=== PATIENT | male | born 1975 | race Hispanic/Latino ===

== ENCOUNTER 2019-02-01 23:01 | Inpatient (IN) | payer OTHER ==
--- NOTE | 2019-02-01 23:06 | Emergency Department Report ---
History of Present Illness - General Stated Complaint: SUIDIDE ATTEMPT/MH EVAL Time Seen by Provider: 02/01/19 23:02 Source: patient, EMS Mode of arrival: Stretcher Limitations: No Limitations - History of Present Illness Initial Comments: Patient is a 43-year-old male that presents emergency room with complaints of suicide attempt by rubbing alcohol ingestion. Patient states he drank 1 bottle rubbing alcohol. Patient states she was trying to kill himself as having family issues. Patient states he's been having suicidal thoughts for the last few days and just decided to end it all. Patient denies homicidal ideation. Patient denies hallucinations. Patient denies anxiety. Patient complains of depression. MD Complaint: intentional overdose -: Sudden Intent: suicide attempt How Overdose Was Discovered: called family/friend Context: Intentional Overdose: relationship problems Associated Symptoms: depression Treatments Prior to Arrival: none - Related Data Allergies Allergy/AdvReac Type Severity Reaction Status Date / Time No Known Allergies Allergy Unverified 02/02/19 00:11 ED Review of Systems ROS: Stated complaint: SUIDIDE ATTEMPT/MH EVAL Other details as noted in HPI Constitutional: denies: chills, fever Eyes: denies: eye pain, eye discharge, vision change ENT: denies: ear pain, throat pain Respiratory: denies: cough, shortness of breath, wheezing Cardiovascular: denies: chest pain, palpitations Endocrine: no symptoms reported Gastrointestinal: denies: abdominal pain, nausea, diarrhea Genitourinary: denies: urgency, dysuria Musculoskeletal: denies: back pain, joint swelling, arthralgia Skin: denies: rash, lesions Neurological: denies: headache, weakness, paresthesias Psychiatric: depression, suicidal thoughts. denies: anxiety Hematological/Lymphatic: denies: easy bleeding, easy bruising ED Past Medical Hx - Past Medical History Previous Medical History?: No - Surgical History Past Surgical History?: No - Family History Family history: no significant - Social History Smoking Status: Current Every Day Smoker Substance Use Type: None ED Physical Exam - General Limitations: No Limitations General appearance: alert, in no apparent distress - Head Head exam: Present: atraumatic, normocephalic - Eye Eye exam: Present: normal appearance - ENT ENT exam: Present: mucous membranes moist - Neck Neck exam: Present: normal inspection - Respiratory Respiratory exam: Present: normal lung sounds bilaterally. Absent: respiratory distress - Cardiovascular Cardiovascular Exam: Present: regular rate, normal rhythm. Absent: systolic murmur, diastolic murmur, rubs, gallop - GI/Abdominal GI/Abdominal exam: Present: soft, normal bowel sounds. Absent: distended, tenderness, guarding - Rectal Rectal exam: Present: deferred - Extremities Exam Extremities exam: Present: normal inspection - Back Exam Back exam: Present: normal inspection - Neurological Exam Neurological exam: Present: alert, oriented X3 - Psychiatric Psychiatric exam: Present: depressed, suicidal ideation - Skin Skin exam: Present: warm, dry, intact, normal color. Absent: rash ED Course Vital Signs 02/01/19 02/01/19 23:15 23:45 Pulse Rate 98 H 85 Respiratory 18 18 Rate Blood Pressure 111/70 116/79 [Left] O2 Sat by Pulse 96 95 Oximetry - Reevaluation(s) Reevaluation #1: Initial evaluation done. Patient placed on 1013. Poison control will be called by nurse. see poison control recs below. 02/01/19 23:06 VINCENT DESAI Male : 1975 MedRec# [id number] 02/02/19 01:42 - Nurse Note by SONDRA MISHRA Acct Num: [id number] : 1975 Patient Age: 43 Poison control (p.c) called upon arrival, advise to Treat Symptomatically. Per p.c;, pt can present with [employer] SPECIALIST depression, GI Sx, GI bleed, Mild increase in BG, tachycardia, resp. distress, ketonemia without metabolic acidosis. 1/2 for rubbing alcohol is 2-3 days, per p.c, observe for at least 24 hrs. Check urine for ketones, and serum acetone. [facility] Isopropyl Alcohol 70% [id number] fl oz If pt presents with acidosis: measure serum osomolality, ethonal, acetaminophen and ASA all from same sample. Initialized on 02/02/19 01:42 - END OF NOTE Reevaluation #2: Discussed all results with patient. Per poison control recommendations, the patient will be admitted to the hospitalist service for observation. 02/02/19 00:30 - Consultations Consultation #1: Hospitalist consultation for admission. Hospitalist to admit patient and assume care of patient. 02/02/19 00:35 ED Medical Decision Making - Lab Data Result diagrams: 02/01/19 23:10 02/01/19 23:10 - EKG Data -: EKG Interpreted by Me EKG shows normal: sinus rhythm, axis, intervals, QRS complexes, ST-T waves Rate: normal - Medical Decision Making Patient is a 43-year-old male presents emergency room with complaints of overdose by rubbing alcohol. Patient's overdose was a suicide attempt. Patient placed on 1013. Patient's labs done and unremarkable. Poison control contacted. Patient admitted to the hospitalist for observation and further evaluation and treatment. - Differential Diagnosis overdose. Suicide attempt. Critical Care Time: Yes Critical care attestation.: If time is entered above; I have spent that time in minutes in the direct care of this critically ill patient, excluding procedure time. Critical Care Time: 35 minutes ED Disposition Clinical Impression: Overdose Qualifiers: Encounter type: initial encounter Injury intent: intentional self-harm Qualified Code(s): T50.902A - Poisoning by unspecified drugs, medicaments and biological substances, intentional self-harm, initial encounter Suicidal behavior Qualifiers: Attempted self-injury: with attempted self-injury Qualified Code(s): T14.91XA - Suicide attempt, initial encounter Ingestion of caustic substance Qualifiers: Encounter type: initial encounter Injury intent: intentional self-harm Qualified Code(s): T54.92XA - Toxic effect of unspecified corrosive substance, intentional self-harm, initial encounter Disposition: DC-09 OP ADMIT IP TO THIS HOSP Is pt being admited?: Yes Does the pt Need Aspirin: No Condition: Critical Time of Disposition: 00:33
[2019-02-01 23:30] LABS: Basophils # (Auto) 0.1 K/mm3 (0.0-0.1); Basophils % (Auto) 0.9 % (0.0-1.8); Eosinophils % (Auto) 0.1 % (0.0-4.3); Hematocrit 47.5 % (35.5-45.6); Hemoglobin 16.3 gm/dl (11.8-15.2); Lymphocytes # (Auto) 2.9 K/mm3 (1.2-5.4); Lymphocytes % (Auto) 24.9 % (13.4-35.0); Mean Corpuscular HGB Conc 34 % (32-34); Mean Corpuscular Volume 102 fl (84-94); Monocytes # (Auto) 0.8 K/mm3 (0.0-0.8); Monocytes % (Auto) 7.1 % (0.0-7.3); Platelet Count 336 K/mm3 (140-440); Red Blood Count 4.64 M/mm3 (3.65-5.03); Red Cell Distribution Width 13.9 % (13.2-15.2)
[2019-02-01 23:53] LABS: Alanine Aminotransferase 125 units/L (7-56); Albumin 4.2 g/dL (3.9-5); BUN/Creatinine Ratio 10; Blood Urea Nitrogen 12 mg/dL (9-20); Calcium 8.8 mg/dL (8.4-10.2); Hemolysis Index 6
[2019-02-01] MEDS ORDERED: NACL 0.9% 1000 ML 1,000 ML IV ONE (23:55)
[2019-02-01] MEDS ORDERED: ZOFRAN IV ONE (23:55)
[2019-02-01] MEDS ORDERED: ZOFRAN ONE (23:58)
[2019-02-02] MEDS ORDERED: SODIUM CHLORIDE FLUSH SYRINGE 10 ML IV PRN (02:15)
[2019-02-02] MEDS ORDERED: ZOFRAN IV PRN (02:15)
[2019-02-02] MEDS ORDERED: TYLENOL PO PRN (02:15)
[2019-02-02] MEDS ORDERED: D50W (25GM) Syringe IV PRN (02:23)
[2019-02-02] MEDS ORDERED: K-DUR PO ONE ×2 (02:40→04:51)
--- NOTE | 2019-02-02 02:40 | History and Physical Report ---
History of Present Illness Date of examination: 02/02/19 Chief complaint: "I drank rubbing alcohol" History of present illness: Patient is a 43-year-old male with history of COPD who was brought to the ED via EMS on account of ingestion of rubbing alcohol at about 10.30-11 AM in an attempt to commit suicide. Patient stated that he didn't want to live anymore. He later called a family member and EMS was called. He admitted to generalized abdominal pain, nausea with vomiting times multiple episodes, lightheadedness and syncope. He denied chest pain, palpitation, shortness of breath, fever or chills. No prior history of suicidal attempt. Patient was subsequently arrested by the police because he had an outstanding warrant. Past History Past Medical History: COPD, other (hypoglycemia) Past Surgical History: hernia repair, Other (eye surgery) Social history: smoking (he has 20 years history of cigarette smoking. He currently smokes 1 pack per day. He admits to daily alcohol use. He denies illicit drug use) Family history: other (no known family history of hypertension, diabetes or heart disease) Medications and Allergies Allergies Allergy/AdvReac Type Severity Reaction Status Date / Time No Known Allergies Allergy Unverified 02/02/19 00:11 Active Meds: Active Medications Acetaminophen (Tylenol) 650 mg PO Q4H PRN PRN Reason: Pain MILD(1-3)/Fever >100.5/AGUIRRE Dextrose (D50w (25gm) Syringe) 25 ml IV PRN PRN PRN Reason: Hypoglycemia Enoxaparin Sodium (Lovenox) 40 mg SUB-Q QDAY IVETTE Sodium Chloride (Nacl 0.9% 1000 Ml) 1,000 mls @ 75 mls/hr IV DIRECT IVETTE Ondansetron HCl (Zofran) 4 mg IV Q8H PRN PRN Reason: Nausea And Vomiting Potassium Chloride (K-Dur) 40 meq PO ONCE ONE Stop: 02/02/19 02:41 Sodium Chloride (Sodium Chloride Flush Syringe 10 Ml) 10 ml IV BID IVETTE Sodium Chloride (Sodium Chloride Flush Syringe 10 Ml) 10 ml IV PRN PRN PRN Reason: LINE FLUSH Review of Systems All systems: negative (except as documented in the HPI, 14 point system reviewed were negative) Exam - Constitutional Vitals: Temp Pulse Resp BP Pulse Ox 72 16 103/53 93 02/02/19 01:55 02/02/19 01:55 02/02/19 01:55 02/02/19 01:55 General appearance: Present: no acute distress - EENT Eyes: Present: PERRL, EOM intact ENT: hearing intact, clear oral mucosa - Neck Neck: Present: supple, normal ROM - Respiratory Respiratory effort: normal Respiratory: bilateral: CTA - Cardiovascular Rhythm: regular Heart Sounds: Present: S1 & S2. Absent: rub, click - Extremities Extremities: pulses symmetrical, No edema Peripheral Pulses: within normal limits - Abdominal General gastrointestinal: Present: soft, tender (generalized), non-distended, normal bowel sounds Male genitourinary: Present: deferred - Integumentary Integumentary: Present: clear, warm, dry - Musculoskeletal Musculoskeletal: gait normal, strength equal bilaterally - Psychiatric Psychiatric: cooperative - Neurologic Neurologic: CNII-XII intact, moves all extremities Results - Labs CBC & Chem 7: 02/01/19 23:10 02/01/19 23:10 Labs: Laboratory Last Values WBC 11.7 K/mm3 (4.5-11.0) H 02/01/19 23:10 RBC 4.64 M/mm3 (3.65-5.03) 02/01/19 23:10 Hgb 16.3 gm/dl (11.8-15.2) H 02/01/19 23:10 Hct 47.5 % (35.5-45.6) H 02/01/19 23:10 MCV 102 fl (84-94) H 02/01/19 23:10 MCH 35 pg (28-32) H 02/01/19 23:10 MCHC 34 % (32-34) 02/01/19 23:10 RDW 13.9 % (13.2-15.2) 02/01/19 23:10 Plt Count 336 K/mm3 (140-440) 02/01/19 23:10 Lymph % (Auto) 24.9 % (13.4-35.0) 02/01/19 23:10 [place] % (Auto) 7.1 % (0.0-7.3) 02/01/19 23:10 Eos % (Auto) 0.1 % (0.0-4.3) 02/01/19 23:10 Baso % (Auto) 0.9 % (0.0-1.8) 02/01/19 23:10 Lymph # 2.9 K/mm3 (1.2-5.4) 02/01/19 23:10 [place] # 0.8 K/mm3 (0.0-0.8) 02/01/19 23:10 Eos # 0.0 K/mm3 (0.0-0.4) 02/01/19 23:10 Baso # 0.1 K/mm3 (0.0-0.1) 02/01/19 23:10 Seg Neutrophils % 67.0 % (40.0-70.0) 02/01/19 23:10 Seg Neutrophils # 7.8 K/mm3 (1.8-7.7) H 02/01/19 23:10 VBG pH 7.429 (7.320-7.420) H 02/01/19 23:29 Sodium 142 mmol/L (137-145) 02/01/19 23:10 Potassium 3.4 mmol/L (3.6-5.0) L 02/01/19 23:10 Chloride 100.5 mmol/L (98-107) 02/01/19 23:10 Carbon Dioxide 25 mmol/L (22-30) 02/01/19 23:10 20 mmol/L 02/01/19 23:10 BUN 12 mg/dL (9-20) 02/01/19 23:10 1.2 mg/dL (0.8-1.5) 02/01/19 23:10 Estimated GFR > 60 ml/min 02/01/19 23:10 10 % 02/01/19 23:10 Glucose 130 mg/dL (75-100) H 02/01/19 23:10 Calcium 8.8 mg/dL (8.4-10.2) 02/01/19 23:10 0.50 mg/dL (0.1-1.2) 02/01/19 23:10 AST 92 units/L (5-40) H 02/01/19 23:10 ALT 125 units/L (7-56) H 02/01/19 23:10 60 units/L (35-129) 02/01/19 23:10 7.5 g/dL (6.3-8.2) 02/01/19 23:10 4.2 g/dL (3.9-5) 02/01/19 23:10 1.3 % 02/01/19 23:10 Salicylates < 0.3 mg/dL (2.8-20.0) L 02/01/19 23:10 Acetaminophen < 5.0 ug/mL (10.0-30.0) L 02/01/19 23:10 Plasma/Serum Alcohol < 0.01 % (0-0.07) 02/01/19 23:10 Assessment and Plan Assessment and plan: Suicidal attempt with rubbing alcohol -Poison control recommended treating the pt symptomatically and observation for 24 hours -Patient placed on 1013 -Consult mental health team when medically cleared Hypokalemia -We will replete and monitor level -We will check magnesium level Leukocytosis -Probably reactive, will monitor level COPD -No acute exacerbation -On when necessary nebulizer breathing treatments History of hypoglycemia -On when necessary IV dextrose History of polysubstance abuse (alcohol and tobacco) -Patient will be placed on alcohol withdrawal prophylaxis -Cessation recommended DVT prophylaxis with Lovenox and GI prophylaxis with Protonix Time spent: 38 minutes
[2019-02-02] MEDS ORDERED: ATIVAN IV PRN (02:51)
[2019-02-02] MEDS ORDERED: PROVENTIL IH PRN (02:52)
[2019-02-02] MEDS ORDERED: NACL 0.9% 1000 ML 1,000 ML IV SCH (03:00)
[2019-02-02 03:24] LABS: Bilirubin,Urine NEG (Negative); Blood,Urine NEG (Negative); Color,Urine Yellow (Yellow); Mucus,Urine 2+ /HPF
[2019-02-02 03:28] LABS: WBC,Urine < 1.0 /HPF (0.0-6.0)
[2019-02-02 03:29] LABS: Amphetamine Screen,Urine PRESUMPTIVE NEGATIVE; Benzodiazepines Screen,Urine PRESUMPTIVE NEGATIVE; Cocaine Screen,Urine PRESUMPTIVE NEGATIVE; Methadone Screen,Urine PRESUMPTIVE NEGATIVE; Opiate Screen,Urine PRESUMPTIVE NEGATIVE
[2019-02-02 03:44] LABS: Cannabinoid Screen,Urine PRESUMPTIVE POSITIVE
[2019-02-02 05:17] LABS: BUN/Creatinine Ratio 11; Blood Urea Nitrogen 12 mg/dL (9-20); Calcium 8.3 mg/dL (8.4-10.2); Hemolysis Index 7
[2019-02-02 05:21] LABS: Alanine Aminotransferase 103 units/L (7-56); Albumin 3.7 g/dL (3.9-5)
[2019-02-02 05:22] LABS: Bilirubin,Direct < 0.2 mg/dL (0-0.2)
[2019-02-02 08:11] LABS: INR 1.07 (0.87-1.13)
[2019-02-02 08:12] LABS: Partial Thromboplastin Time 28.6 Sec. (24.2-36.6)
[2019-02-02] MEDS: PROTONIX PO SCH (10:51)
[2019-02-02] MEDS: VITAMIN B-1 PO SCH (10:51)
[2019-02-02] MEDS: LOVENOX SUB-Q SCH (10:51)
[2019-02-02] MEDS: THERAGRAN Tab PO SCH (10:51)
[2019-02-02] MEDS: FOLVITE PO SCH (10:51)
[2019-02-02] MEDS: SODIUM CHLORIDE FLUSH SYRINGE 10 ML IV SCH (10:52)
--- NOTE | 2019-02-02 15:11 | Consultation ---
History of Present Illness - Reason for Consult Consult date: 02/02/19 Reason for consult: mental Health Evaluation Requesting physician: MENG MENENDEZ - Chief Complaint Chief complaint: "I miss my son" - History of Present Psychiatric Illness 43-year-old male whop presented to the ER for suicide attempt by drinking rubbing alcohol. Today the patient was calm and cooperative during the assessment. He stated that he was feeling "awful" the past couple days because he cannot not help his son who's in residential currently. Also, he stated that he is having a hard time finding a job. He stated that he felt like dying, so he decided to drink the rubbing alcohol to kill himself. He stated that he take 3 Tylenol a night to help him seep. He stated that life shouldn't be this hard. He rate his depression 7/10, with 10 being the worse. He denies an previous suicide attempt nor a hx of mental health when asked. He denies SI/HI's and AVH's. He denies a poor appetite, but acknowledged having erratic sleep. He stated that he drink (etoh) socially. He stated that his increased alcohol consumption (etoh) prior to coming to the ER isn't like him. He acknowledge smoking marijuana sometimes. Medications and Allergies Allergies Allergy/AdvReac Type Severity Reaction Status Date / Time No Known Allergies Allergy Unverified 02/02/19 00:11 Home Medications Medication Instructions Recorded Confirmed Last Taken Type Folic Acid [Folvite] 1 mg PO QDAY #30 tablet 02/02/19 Unknown Rx Multivitamin Tab [Multiple Vitamin 1 each PO QDAY #30 tablet 02/02/19 Unknown Rx TAB (Theragran)] Active Meds: Active Medications Acetaminophen (Tylenol) 650 mg PO Q4H PRN PRN Reason: Pain MILD(1-3)/Fever >100.5/AGUIRRE Last Admin: 02/02/19 12:31 Dose: 650 mg Documented by: Albuterol (Proventil) 2.5 mg IH Q4HRT PRN PRN Reason: Shortness Of Breath Dextrose (D50w (25gm) Syringe) 25 ml IV PRN PRN PRN Reason: Hypoglycemia Enoxaparin Sodium (Lovenox) 40 mg SUB-Q QDAY IVETTE Last Admin: 02/02/19 10:51 Dose: 40 mg Documented by: Folic Acid (Folvite) 1 mg PO QDAY [facility] Last Admin: 02/02/19 10:51 Dose: 1 mg Documented by: Sodium Chloride (Nacl 0.9% 1000 Ml) 1,000 mls @ 75 mls/hr IV DIRECT IVETTE Lorazepam (Ativan) 1 mg IV Q4H PRN PRN Reason: Agitation Multivitamins (Theragran Tab) 1 each PO QDAY [facility] Last Admin: 02/02/19 10:51 Dose: 1 each Documented by: Ondansetron HCl (Zofran) 4 mg IV Q8H PRN PRN Reason: Nausea And Vomiting Pantoprazole Sodium (Protonix) 40 mg PO QDAY [facility] Last Admin: 02/02/19 10:51 Dose: 40 mg Documented by: Sodium Chloride (Sodium Chloride Flush Syringe 10 Ml) 10 ml IV BID [facility] Last Admin: 02/02/19 10:52 Dose: 10 ml Documented by: Sodium Chloride (Sodium Chloride Flush Syringe 10 Ml) 10 ml IV PRN PRN PRN Reason: LINE FLUSH Thiamine HCl (Vitamin B-1) 100 mg PO QDAY [facility] Last Admin: 02/02/19 10:51 Dose: 100 mg Documented by: Mental Status Exam - Vital signs Last Vital Signs Temp 98.6 F 02/02/19 11:57 Pulse 67 02/02/19 11:57 Resp 20 02/02/19 12:31 BP 110/68 02/02/19 11:57 Pulse Ox 96 02/02/19 11:57 - Exam Narrative exam: MSE: Appearance: calm, cooperative Behavior: regular eye contact Speech: somewhat hyper verbal Mood: "okay" Affect: congruent to mood Thought Process: circumstantial Thought Content: denies SI/HI's and AVH's Motor Activity: sitting up in bed Cognition: A/O x3 Insight:variable to fair Judgment: variable Results Result Diagrams: 02/01/19 23:10 02/02/19 04:36 Abnormal lab results 02/01/19 02/01/19 02/01/19 Range/Units 23:10 23:10 23:10 WBC 11.7 H (4.5-11.0) K/mm3 Hgb 16.3 H (11.8-15.2) gm/dl Hct 47.5 H (35.5-45.6) % MCV 102 H (84-94) fl MCH 35 H (28-32) pg Seg Neutrophils # 7.8 H (1.8-7.7) K/mm3 VBG pH (7.320-7.420) Potassium 3.4 L (3.6-5.0) mmol/L Glucose 130 H (75-100) mg/dL Calcium (8.4-10.2) mg/dL AST 92 H (5-40) units/L ALT 125 H (7-56) units/L Albumin (3.9-5) g/dL Salicylates < 0.3 L (2.8-20.0) mg/dL Acetaminophen (10.0-30.0) ug/mL 02/01/19 02/01/19 02/02/19 Range/Units 23:10 23:29 04:36 WBC (4.5-11.0) K/mm3 Hgb (11.8-15.2) gm/dl Hct (35.5-45.6) % MCV (84-94) fl MCH (28-32) pg Seg Neutrophils # (1.8-7.7) K/mm3 VBG pH 7.429 H (7.320-7.420) Potassium (3.6-5.0) mmol/L Glucose (75-100) mg/dL Calcium 8.3 L (8.4-10.2) mg/dL AST (5-40) units/L ALT (7-56) units/L Albumin (3.9-5) g/dL Salicylates (2.8-20.0) mg/dL Acetaminophen < 5.0 L (10.0-30.0) ug/mL 02/02/19 Range/Units 04:46 WBC (4.5-11.0) K/mm3 Hgb (11.8-15.2) gm/dl Hct (35.5-45.6) % MCV (84-94) fl MCH (28-32) pg Seg Neutrophils # (1.8-7.7) K/mm3 VBG pH (7.320-7.420) Potassium (3.6-5.0) mmol/L Glucose (75-100) mg/dL Calcium (8.4-10.2) mg/dL AST 70 H (5-40) units/L ALT 103 H (7-56) units/L Albumin 3.7 L (3.9-5) g/dL Salicylates (2.8-20.0) mg/dL Acetaminophen (10.0-30.0) ug/mL All other labs normal. Assessment and Plan Assessment and plan: Impression: MDD, Severe Type. Cannabis Use DO. Alcohol Intoxication. Today the was calm and cooperative during the assessment. Liver Enzymes are elevated, but trending down. No acute withdrawals noted (etoh). DDx: Substance Induced Mood DO, Alcohol Use DO Recommendation/Plan: Continue 1013 and start Zoloft 25 mg PO daily for depression and Melatonin 5 mg PO HS for sleep. Discussed possible suicidality/medication induced maria d with the patient reference Zoloft, he verbalized understanding. Dispo: The patient was referred to inpatient psy services. Stafedf with Dr Sudarshan Santamaria.
--- NOTE | 2019-02-02 16:20 | Event Note ---
Date: 02/02/19 Patient seen and examined, in no acute distress at this time resting comfortably. Labs reviewed counseling provided to the patient. He is medically stable at this point for discharge. Mental health consult placed.
[2019-02-02] MEDS: ZOLOFT PO SCH (18:09)
[2019-02-02] MEDS: MELATONIN PO SCH (22:32)
[2019-02-03] MEDS: SODIUM CHLORIDE FLUSH SYRINGE 10 ML IV SCH ×3 (01:08→22:27)
[2019-02-03] MEDS: FOLVITE PO SCH (10:00)
[2019-02-03] MEDS: LOVENOX SUB-Q SCH (10:00)
[2019-02-03] MEDS: ZOLOFT PO SCH (10:00)
[2019-02-03] MEDS: VITAMIN B-1 PO SCH (10:00)
[2019-02-03] MEDS: THERAGRAN Tab PO SCH (10:00)
[2019-02-03] MEDS: PROTONIX PO SCH (10:00)
--- NOTE | 2019-02-03 13:32 | Progress Note ---
Subjective - Reason for Consult Consult date: 02/03/19 Reason for consult: Psychiatry Follow-up - Chief Complaint Chief complaint: "I need this IV out" 43-year-old male whop presented to the ER for suicide attempt by drinking rubbing alcohol. Today the patient was irritable during the assessment. He was more eager to discuss his IV than his mental health. Several attempts was made to to engage the patient, but was unsuccessful. He did deny SI/HI's. Mental Status Exam - Vital signs Last Vital Signs Temp 98.8 F 02/03/19 11:55 Pulse 52 L 02/03/19 11:55 Resp 18 02/03/19 11:55 BP 113/71 02/03/19 11:55 Pulse Ox 96 02/03/19 11:55 - Exam Narrative exam: MSE: Appearance: in hospital attire Behavior: regular eye contact Speech: regular rate and tone Mood: irritable Affect: congruent to mood Thought Process: unable to assess Thought Content: denies SI/HI's and AVH's Motor Activity: sitting up in bed Cognition: A/O x3 Insight: unable to assess Judgment: unable to assess Assessment and Plan Impression: MDD, Severe Type. Cannabis Use DO. Alcohol Intoxication. Today the patient was irritable during the assessment. Liver Enzymes are elevated, but trending down. No acute withdrawals noted (etoh). DDx: Substance Induced Mood DO, Alcohol Use DO Recommendation/Plan: Continue 1013 and Zoloft 25 mg PO daily for depression and Melatonin 5 mg PO HS for sleep. Discussed possible suicidality/medication induced maria d with the patient reference Zoloft, he verbalized understanding. Dispo: The patient was referred to inpatient psy services. Will staff with Dr Sudarshan Santamaria.
--- NOTE | 2019-02-03 16:48 | Progress Note ---
Assessment and Plan Assessment and plan: --Suicidal attempt with rubbing alcohol -Poison control recommended treating the pt symptomatically and observation for 24 hours Patient on 1012, like evaluation noted and appreciated Recommend inpatient psych transfer --Hypokalemia Corrected --Leukocytosis Probably reactive, will monitor level --Transaminitis/probably alcoholic liver disease Transaminases trending down Closely monitor, GI evaluation if needed COPD -No acute exacerbation -On when necessary nebulizer breathing treatments History of hypoglycemia -On when necessary IV dextrose History of polysubstance abuse (alcohol and tobacco) -Patient will be placed on alcohol withdrawal prophylaxis -Cessation recommended DVT prophylaxis with Lovenox and GI prophylaxis with Protonix History Interval history: Patient seen and examined and his trunk this morning medical records reviewed Admitted with suicidal attempt on 1012 status Patient was evaluated by psych recommended inpatient psych transfer Patient is comfortable in no new complaints Vital signs reviewed, residential mortgage manager at the bedside Hospitalist Physical - Constitutional Vitals: Temp Pulse Resp BP Pulse Ox 98.8 F 52 L 18 113/71 96 02/03/19 11:55 02/03/19 11:55 02/03/19 11:55 02/03/19 11:55 02/03/19 11:55 General appearance: Present: no acute distress, well-nourished - EENT Eyes: Present: PERRL, EOM intact - Neck Neck: Present: supple, normal ROM - Respiratory Respiratory effort: normal Respiratory: bilateral: diminished, negative: rales, rhonchi, wheezing - Cardiovascular Rhythm: regular Heart Sounds: Present: S1 & S2 - Extremities Extremities: no ischemia, No edema Extremity abnormal: edema, cyanosis - Abdominal General gastrointestinal: soft, non-tender, non-distended, normal bowel sounds - Integumentary Integumentary: Present: clear, warm - Psychiatric Psychiatric: appropriate mood/affect, cooperative - Neurologic Neurologic: CNII-XII intact, moves all extremities Results - Labs CBC & Chem 7: 02/01/19 23:10 02/02/19 04:36 Labs: Laboratory Last Values WBC 11.7 K/mm3 (4.5-11.0) H 02/01/19 23:10 RBC 4.64 M/mm3 (3.65-5.03) 02/01/19 23:10 Hgb 16.3 gm/dl (11.8-15.2) H 02/01/19 23:10 Hct 47.5 % (35.5-45.6) H 02/01/19 23:10 MCV 102 fl (84-94) H 02/01/19 23:10 MCH 35 pg (28-32) H 02/01/19 23:10 MCHC 34 % (32-34) 02/01/19 23:10 RDW 13.9 % (13.2-15.2) 02/01/19 23:10 Plt Count 336 K/mm3 (140-440) 02/01/19 23:10 Lymph % (Auto) 24.9 % (13.4-35.0) 02/01/19 23:10 [place] % (Auto) 7.1 % (0.0-7.3) 02/01/19 23:10 Eos % (Auto) 0.1 % (0.0-4.3) 02/01/19 23:10 Baso % (Auto) 0.9 % (0.0-1.8) 02/01/19 23:10 Lymph # 2.9 K/mm3 (1.2-5.4) 02/01/19 23:10 [place] # 0.8 K/mm3 (0.0-0.8) 02/01/19 23:10 Eos # 0.0 K/mm3 (0.0-0.4) 02/01/19 23:10 Baso # 0.1 K/mm3 (0.0-0.1) 02/01/19 23:10 Seg Neutrophils % 67.0 % (40.0-70.0) 02/01/19 23:10 Seg Neutrophils # 7.8 K/mm3 (1.8-7.7) H 02/01/19 23:10 PT 13.6 Sec. (12.2-14.9) 02/02/19 07:34 INR 1.07 (0.87-1.13) 02/02/19 07:34 APTT 28.6 Sec. (24.2-36.6) 02/02/19 07:34 VBG pH 7.429 (7.320-7.420) H 02/01/19 23:29 Sodium 140 mmol/L (137-145) 02/02/19 04:36 Potassium 3.8 mmol/L (3.6-5.0) 02/02/19 04:36 Chloride 102.3 mmol/L (98-107) 02/02/19 04:36 Carbon Dioxide 28 mmol/L (22-30) 02/02/19 04:36 14 mmol/L 02/02/19 04:36 BUN 12 mg/dL (9-20) 02/02/19 04:36 1.1 mg/dL (0.8-1.5) 02/02/19 04:36 Estimated GFR > 60 ml/min 02/02/19 04:36 11 % 02/02/19 04:36 Glucose 98 mg/dL (75-100) 02/02/19 04:36 Calcium 8.3 mg/dL (8.4-10.2) L 02/02/19 04:36 Magnesium 1.90 mg/dL (1.7-2.3) 02/02/19 04:36 0.40 mg/dL (0.1-1.2) 02/02/19 04:46 < 0.2 mg/dL (0-0.2) 02/02/19 04:46 0.2 mg/dL 02/02/19 04:46 AST 70 units/L (5-40) H 02/02/19 04:46 ALT 103 units/L (7-56) H 02/02/19 04:46 52 units/L (35-129) 02/02/19 04:46 6.3 g/dL (6.3-8.2) 02/02/19 04:46 3.7 g/dL (3.9-5) L 02/02/19 04:46 1.4 % 02/02/19 04:46 Yellow (Yellow) 02/02/19 02:55 Clear (Clear) 02/02/19 02:55 6.0 (5.0-7.0) 02/02/19 02:55 Ur Specific [place] 1.025 (1.003-1.030) 02/02/19 02:55 30 mg/dl mg/dL (Negative) 02/02/19 02:55 Neg mg/dL (Negative) 02/02/19 02:55 80 mg/dL (Negative) 02/02/19 02:55 Neg (Negative) 02/02/19 02:55 Neg (Negative) 02/02/19 02:55 Neg (Negative) 02/02/19 02:55 4.0 mg/dL (<2.0) 02/02/19 02:55 Ur Leukocyte Esterase Neg (Negative) 02/02/19 02:55 < 1.0 /HPF (0.0-6.0) 02/02/19 02:55 2.0 /HPF (0.0-6.0) 02/02/19 02:55 2+ /HPF 02/02/19 02:55 Salicylates < 0.3 mg/dL (2.8-20.0) L 02/01/19 23:10 Presumptive negative 02/02/19 02:55 Presumptive negative 02/02/19 02:55 Acetaminophen < 5.0 ug/mL (10.0-30.0) L 02/01/19 23:10 Ur Barbiturates Screen Presumptive negative 02/02/19 02:55 Ur Phencyclidine Scrn Presumptive negative 02/02/19 02:55 Ur Amphetamines Screen Presumptive negative 02/02/19 02:55 U Benzodiazepines Scrn Presumptive negative 02/02/19 02:55 Presumptive negative 02/02/19 02:55 U Marijuana (THC) Screen Presumptive positive 02/02/19 02:55 Disclamer 02/02/19 02:55 Plasma/Serum Alcohol < 0.01 % (0-0.07) 02/01/19 23:10 Active Medications - Current Medications Current Medications: Generic Name Dose Route Start Last Admin Trade Name Freq PRN Reason Stop Dose Admin Acetaminophen 650 mg 02/02/19 02:15 02/02/19 12:31 Tylenol PO 650 mg Q4H PRN Administration Pain MILD(1-3)/Fever >100.5/AGUIRRE Albuterol 2.5 mg 02/02/19 02:52 Proventil IH Q4HRT PRN Shortness Of Breath Dextrose 25 ml 02/02/19 02:23 D50w (25gm) Syringe IV PRN PRN Hypoglycemia Enoxaparin Sodium 40 mg 02/02/19 10:00 02/03/19 10:00 Lovenox SUB-Q Not Given QDAY IVETTE Folic Acid 1 mg 02/02/19 10:00 02/03/19 10:00 Folvite PO Not Given QDAY IVETTE Sodium Chloride 1,000 mls @ 75 mls/hr 02/02/19 03:00 02/02/19 18:09 Nacl 0.9% 1000 Ml IV 75 mls/hr DIRECT IVETTE Administration Lorazepam 1 mg 02/02/19 02:51 Ativan IV Q4H PRN Agitation Melatonin 5 mg 02/02/19 22:00 02/02/19 22:32 Melatonin PO 5 mg QHS IVETTE Administration Multivitamins 1 each 02/02/19 10:00 02/03/19 10:00 Theragran Tab PO Not Given QDAY IVETTE Ondansetron HCl 4 mg 02/02/19 02:15 02/02/19 22:32 Zofran IV 4 mg Q8H PRN Administration Nausea And Vomiting Pantoprazole Sodium 40 mg 02/02/19 10:00 02/03/19 10:00 Protonix PO Not Given QDAY IVETTE Sertraline HCl 25 mg 02/02/19 16:00 02/03/19 10:00 Zoloft PO Not Given QDAY IVETTE Sodium Chloride 10 ml 02/02/19 10:00 02/03/19 10:00 Sodium Chloride Flush Syringe 10 Ml IV Not Given BID IVETTE Sodium Chloride 10 ml 02/02/19 02:15 Sodium Chloride Flush Syringe 10 Ml IV PRN PRN LINE FLUSH Thiamine HCl 100 mg 02/02/19 10:00 02/03/19 10:00 Vitamin B-1 PO Not Given QDAY IVETTE Nutrition/Malnutrition Assess - Dietary Evaluation Nutrition/Malnutrition Findings: Nutrition Notes Start: 02/03/19 10:20 Freq: Status: Active Protocol: Document 02/03/19 10:20 RM (Rec: 02/03/19 10:21 [id number]) Nutrition Notes Need for Assessment generated from: circus roustabout Initial or Follow up Brief Note Subjective/Other Information Screened for skin risk. [place] 22 points. Nutrition Intervention Revisit per MD consult or patient Sign Off request:
[2019-02-03] MEDS: MELATONIN PO SCH (22:27)
--- NOTE | 2019-02-04 09:18 | Discharge Summary ---
Providers - Providers Date of Admission: 02/02/19 02:15 Date of discharge: 02/07/19 Attending physician: ROBERTO RODRIGUEZ 02/02/19 09:17 Consult to Mental Health [CONS] Routine Reason For Exam: sucidial Place consult to:: mental health Notified:: Phone number called:: [phone] Was contact made?: No Time called:: 09:58 Primary care physician: SECURITIES RESEARCH ANALYST Hospitalization Reason for admission: suicidal attempt/drank rubbing alcohol Condition: Stable Hospital course: 43-year-old male patient with history of COPD was admitted through emergency room with history of drinking rubbing alcohol as a suicide attempt to harm self Poison control was contacted , recommended close observation Evaluation by psych, recommend inpatient psych admission once medically stable The patient is symptomatically managed , today patient is comfortable ,has no new complaints ,Vital signs are stable, physical examination unremarkable Patient is medically stable for discharge psych cleared for DC home Patient is hemodynamically and clinically stable at discharge Discharge diagnosis; --Suicidal attempt: with rubbing alcohol Poison control rec treating the pt symptomatically and obs for 24 hours Patient on 1013, psych discontinued 1013, cleared for discharge home --Hypokalemia Corrected --Leukocytosis Probably reactive, will monitor level --Transaminitis/probably alcoholic liver disease Transaminases trending down Closely monitor, GI evaluation if needed COPD, No acute exacerbation On when necessary nebulizer breathing treatments History of hypoglycemia -On when necessary IV dextrose History of polysubstance abuse (alcohol and tobacco) -Patient will be placed on alcohol withdrawal prophylaxis -Smoking Cessation recommended Psych cleared for DC home Stable at discharge Disposition: DC-30 STILL A PATIENT Time spent for discharge: 32 min Core Measure Documentation - Palliative Care Palliative Care/ Comfort Measures: Not Applicable - Core Measures Any of the following diagnoses?: none Exam - Constitutional Vitals: Temp Pulse Resp BP Pulse Ox 98.4 F 51 L 12 117/75 96 02/04/19 06:31 02/04/19 06:31 02/04/19 06:31 02/04/19 06:31 02/04/19 06:31 General appearance: Present: no acute distress, well-nourished - EENT Eyes: Present: PERRL, EOM intact - Neck Neck: Present: supple, normal ROM - Respiratory Respiratory effort: normal Respiratory: bilateral: diminished, negative: rales, rhonchi, wheezing - Cardiovascular Rhythm: regular Heart Sounds: Present: S1 & S2 - Extremities Extremities: no ischemia, No edema - Abdominal General gastrointestinal: Present: soft, non-tender, non-distended, normal bowel sounds - Integumentary Integumentary: Present: clear, warm - Musculoskeletal Musculoskeletal: strength equal bilaterally - Psychiatric Psychiatric: appropriate mood/affect, cooperative - Neurologic Neurologic: CNII-XII intact, moves all extremities Plan Activity: advance as tolerated, fall precautions Diet: regular Special Instructions: smoking cessation Additional Instructions: Advised to follow [facility] in 3-5 days. Smoking cessation advised Follow up with: WINTER KAUFFMAN MD [Staff Physician] - 7 Days PRIMARY CARE, [Primary Care Provider] - 3-5 Days Prescriptions: Folic Acid [Folvite] 1 mg PO QDAY #30 tablet Multivitamin Tab [Multiple Vitamin TAB (Theragran)] 1 each PO QDAY #30 tablet
[2019-02-04] MEDS: FOLVITE PO SCH (09:38)
[2019-02-04] MEDS: VITAMIN B-1 PO SCH (09:39)
[2019-02-04] MEDS: LOVENOX SUB-Q SCH (09:39)
[2019-02-04] MEDS: THERAGRAN Tab PO SCH (09:39)
[2019-02-04] MEDS: ZOLOFT PO SCH (09:39)
[2019-02-04] MEDS: PROTONIX PO SCH (09:39)
[2019-02-04] MEDS: SODIUM CHLORIDE FLUSH SYRINGE 10 ML IV SCH ×2 (09:39→22:25)
--- NOTE | 2019-02-04 16:32 | Progress Note ---
Assessment and Plan Assessment and plan: --Suicidal attempt with rubbing alcohol consumption Patient feels better no new complaints Poison control recommended treating the pt symptomatically and observation for 24 hours Patient on 1013, like evaluation noted and appreciated Recommend inpatient psych transfer --Hypokalemia; resolved --Leukocytosis ;Probably reactive, --Transaminitis/probably alcoholic liver disease Transaminases trending down Closely monitor, GI evaluation if needed --COPD; stable No acute exacerbation On when necessary nebulizer breathing treatments --History of hypoglycemia On when necessary IV dextrose --History of polysubstance abuse (alcohol and tobacco) Patient will be placed on alcohol withdrawal prophylaxis Cessation recommended --DVT prophylaxis with Lovenox and GI prophylaxis with Protonix Patient is medically stable for discharge Awaiting inpatient psych placement History Interval history: Patient seen and examined medical records reviewed Safety seat to the bedside, patient denies any suicidal ideation or thoughts Awaiting inpatient psych placement Vital signs noted Hospitalist Physical - Constitutional Vitals: Temp Pulse Resp BP Pulse Ox 98.4 F 51 L 12 117/75 96 02/04/19 06:31 02/04/19 06:31 02/04/19 06:31 02/04/19 06:31 02/04/19 06:31 General appearance: Present: no acute distress, well-nourished - EENT Eyes: Present: PERRL, EOM intact - Neck Neck: Present: supple, normal ROM - Respiratory Respiratory effort: normal Respiratory: bilateral: diminished, negative: rales, rhonchi, wheezing - Cardiovascular Rhythm: regular Heart Sounds: Present: S1 & S2 - Extremities Extremities: no ischemia, No edema - Abdominal General gastrointestinal: soft, non-tender, non-distended, normal bowel sounds - Integumentary Integumentary: Present: clear, warm - Psychiatric Psychiatric: appropriate mood/affect, cooperative - Neurologic Neurologic: CNII-XII intact, moves all extremities Results - Labs CBC & Chem 7: 02/01/19 23:10 02/02/19 04:36 Labs: Laboratory Last Values WBC 11.7 K/mm3 (4.5-11.0) H 02/01/19 23:10 RBC 4.64 M/mm3 (3.65-5.03) 02/01/19 23:10 Hgb 16.3 gm/dl (11.8-15.2) H 02/01/19 23:10 Hct 47.5 % (35.5-45.6) H 02/01/19 23:10 MCV 102 fl (84-94) H 02/01/19 23:10 MCH 35 pg (28-32) H 02/01/19 23:10 MCHC 34 % (32-34) 02/01/19 23:10 RDW 13.9 % (13.2-15.2) 02/01/19 23:10 Plt Count 336 K/mm3 (140-440) 02/01/19 23:10 Lymph % (Auto) 24.9 % (13.4-35.0) 02/01/19 23:10 [place] % (Auto) 7.1 % (0.0-7.3) 02/01/19 23:10 Eos % (Auto) 0.1 % (0.0-4.3) 02/01/19 23:10 Baso % (Auto) 0.9 % (0.0-1.8) 02/01/19 23:10 Lymph # 2.9 K/mm3 (1.2-5.4) 02/01/19 23:10 [place] # 0.8 K/mm3 (0.0-0.8) 02/01/19 23:10 Eos # 0.0 K/mm3 (0.0-0.4) 02/01/19 23:10 Baso # 0.1 K/mm3 (0.0-0.1) 02/01/19 23:10 Seg Neutrophils % 67.0 % (40.0-70.0) 02/01/19 23:10 Seg Neutrophils # 7.8 K/mm3 (1.8-7.7) H 02/01/19 23:10 PT 13.6 Sec. (12.2-14.9) 02/02/19 07:34 INR 1.07 (0.87-1.13) 02/02/19 07:34 APTT 28.6 Sec. (24.2-36.6) 02/02/19 07:34 VBG pH 7.429 (7.320-7.420) H 02/01/19 23:29 Sodium 140 mmol/L (137-145) 02/02/19 04:36 Potassium 3.8 mmol/L (3.6-5.0) 02/02/19 04:36 Chloride 102.3 mmol/L (98-107) 02/02/19 04:36 Carbon Dioxide 28 mmol/L (22-30) 02/02/19 04:36 14 mmol/L 02/02/19 04:36 BUN 12 mg/dL (9-20) 02/02/19 04:36 1.1 mg/dL (0.8-1.5) 02/02/19 04:36 Estimated GFR > 60 ml/min 02/02/19 04:36 11 % 02/02/19 04:36 Glucose 98 mg/dL (75-100) 02/02/19 04:36 Calcium 8.3 mg/dL (8.4-10.2) L 02/02/19 04:36 Magnesium 1.90 mg/dL (1.7-2.3) 02/02/19 04:36 0.40 mg/dL (0.1-1.2) 02/02/19 04:46 < 0.2 mg/dL (0-0.2) 02/02/19 04:46 0.2 mg/dL 02/02/19 04:46 AST 70 units/L (5-40) H 02/02/19 04:46 ALT 103 units/L (7-56) H 02/02/19 04:46 52 units/L (35-129) 02/02/19 04:46 6.3 g/dL (6.3-8.2) 02/02/19 04:46 3.7 g/dL (3.9-5) L 02/02/19 04:46 1.4 % 02/02/19 04:46 Yellow (Yellow) 02/02/19 02:55 Clear (Clear) 02/02/19 02:55 6.0 (5.0-7.0) 02/02/19 02:55 Ur Specific [place] 1.025 (1.003-1.030) 02/02/19 02:55 30 mg/dl mg/dL (Negative) 02/02/19 02:55 Neg mg/dL (Negative) 02/02/19 02:55 80 mg/dL (Negative) 02/02/19 02:55 Neg (Negative) 02/02/19 02:55 Neg (Negative) 02/02/19 02:55 Neg (Negative) 02/02/19 02:55 4.0 mg/dL (<2.0) 02/02/19 02:55 Ur Leukocyte Esterase Neg (Negative) 02/02/19 02:55 < 1.0 /HPF (0.0-6.0) 02/02/19 02:55 2.0 /HPF (0.0-6.0) 02/02/19 02:55 2+ /HPF 02/02/19 02:55 Salicylates < 0.3 mg/dL (2.8-20.0) L 02/01/19 23:10 Presumptive negative 02/02/19 02:55 Presumptive negative 02/02/19 02:55 Acetaminophen < 5.0 ug/mL (10.0-30.0) L 02/01/19 23:10 Ur Barbiturates Screen Presumptive negative 02/02/19 02:55 Ur Phencyclidine Scrn Presumptive negative 02/02/19 02:55 Ur Amphetamines Screen Presumptive negative 02/02/19 02:55 U Benzodiazepines Scrn Presumptive negative 02/02/19 02:55 Presumptive negative 02/02/19 02:55 U Marijuana (THC) Screen Presumptive positive 02/02/19 02:55 Disclamer 02/02/19 02:55 Plasma/Serum Alcohol < 0.01 % (0-0.07) 02/01/19 23:10 Active Medications - Current Medications Current Medications: Generic Name Dose Route Start Last Admin Trade Name Freq PRN Reason Stop Dose Admin Acetaminophen 650 mg 02/02/19 02:15 02/02/19 12:31 Tylenol PO 650 mg Q4H PRN Administration Pain MILD(1-3)/Fever >100.5/AGUIRRE Albuterol 2.5 mg 02/02/19 02:52 Proventil IH Q4HRT PRN Shortness Of Breath Dextrose 25 ml 02/02/19 02:23 D50w (25gm) Syringe IV PRN PRN Hypoglycemia Enoxaparin Sodium 40 mg 02/02/19 10:00 02/04/19 09:39 Lovenox SUB-Q Not Given QDAY IVETTE Folic Acid 1 mg 02/02/19 10:00 02/04/19 09:38 Folvite PO Not Given QDAY [facility] Sodium Chloride 1,000 mls @ 75 mls/hr 02/02/19 03:00 02/02/19 18:09 Nacl 0.9% 1000 Ml IV 75 mls/hr DIRECT IVETTE Administration Lorazepam 1 mg 02/02/19 02:51 Ativan IV Q4H PRN Agitation Melatonin 5 mg 02/02/19 22:00 02/03/19 22:27 Melatonin PO Not Given QHS [facility] Multivitamins 1 each 02/02/19 10:00 02/04/19 09:39 Theragran Tab PO Not Given QDAY [facility] Ondansetron HCl 4 mg 02/02/19 02:15 02/02/19 22:32 Zofran IV 4 mg Q8H PRN Administration Nausea And Vomiting Pantoprazole Sodium 40 mg 02/02/19 10:00 02/04/19 09:39 Protonix PO Not Given QDAY [facility] Sertraline HCl 25 mg 02/02/19 16:00 02/04/19 09:39 Zoloft PO Not Given QDAY [facility] Sodium Chloride 10 ml 02/02/19 10:00 02/04/19 09:39 Sodium Chloride Flush Syringe 10 Ml IV Not Given BID IVETTE Sodium Chloride 10 ml 02/02/19 02:15 Sodium Chloride Flush Syringe 10 Ml IV PRN PRN LINE FLUSH Thiamine HCl 100 mg 02/02/19 10:00 02/04/19 09:39 Vitamin B-1 PO Not Given QDAY [facility] Nutrition/Malnutrition Assess - Dietary Evaluation Nutrition/Malnutrition Findings: Nutrition Notes Start: 02/03/19 10:20 Freq: Status: Active Protocol: Document 02/03/19 10:20 RM (Rec: 02/03/19 10:21 [id number]) Nutrition Notes Need for Assessment generated from: corporate safety director Initial or Follow up Brief Note Subjective/Other Information Screened for skin risk. [place] 22 points. Nutrition Intervention Revisit per MD consult or patient Sign Off request:
--- NOTE | 2019-02-04 19:27 | Progress Note ---
Subjective - Reason for Consult Consult date: 02/04/19 Reason for consult: Psychiatric Follow-up Evaluation - Chief Complaint Chief complaint: "I feel fine." Patient is a 43-year-old male who presented to the emergency room for suicide attempt by drinking rubbing alcohol. Patient refuses to go into details about the events that lead to his current hospitalization. Today the patient is anxious and irritable during the assessment. He states, " I'm not suicidal or homicidal. " He reports, " I have a family member that is ready to sign for me." Patient denies any past psychiatric history. Appears guarded with circumstantial thought process. He denies SI/HI's, A/VH's, and delusions. Patient was compliant with psychiatric medication x 1 but reports that he will refuse in the future. Mental Status Exam - Vital signs Last Vital Signs Temp 98.3 F 02/04/19 17:20 Pulse 51 L 02/04/19 17:20 Resp 20 02/04/19 17:20 BP 111/77 02/04/19 17:20 Pulse Ox 98 02/04/19 17:20 - Exam Narrative exam: Mental Status Exam Appearance: in hospital attire Behavior: regular eye contact Speech: regular rate and tone Mood: irritable, anxious Affect: congruent to mood Thought Process: circumstantial Thought Content: denies SI/HI's, AVH's, and delusions Motor Activity: sitting up in bed Cognition: A/O x 3 Insight: variable Judgment: variable Assessment and Plan Impression: MDD, Severe Type. Cannabis Use DO. Alcohol Intoxication. Today the patient was irritable and anxious during the assessment. Liver Enzymes are elevated, but trending down. No acute withdrawals noted (etoh). DDx: Substance Induced Mood DO, Alcohol Use DO Recommendation/Plan: 1. Continue 1013. 2. Zoloft 25 mg PO daily for depression and Melatonin 5 mg PO HS for sleep. Discussed possible suicidality/medication induced maria d with the patient reference Zoloft, he verbalized understanding. Disposition: The patient was referred to inpatient psy services. Will staff with Dr. Sudarshan Santamaria.
[2019-02-04] MEDS: MELATONIN PO SCH (22:24)
--- NOTE | 2019-02-05 10:04 | Progress Note ---
Assessment and Plan Assessment and plan: --Suicidal attempt with rubbing alcohol consumption Patient feels better no new complaints Poison control recommended treating the pt symptomatically and observation for 24 hours Patient on 1013, like evaluation noted and appreciated Recommend inpatient psych transfer --Hypokalemia; resolved --Leukocytosis ;Probably reactive, --Transaminitis/probably alcoholic liver disease Transaminases trending down Closely monitor, GI evaluation if needed --COPD; stable No acute exacerbation On when necessary nebulizer breathing treatments --History of hypoglycemia On when necessary IV dextrose --History of polysubstance abuse (alcohol and tobacco) Patient will be placed on alcohol withdrawal prophylaxis Cessation recommended --DVT prophylaxis with Lovenox and GI prophylaxis with Protonix Patient is medically stable for discharge Awaiting inpatient psych placement History Interval history: Patient seen and examined medical records reviewed Physical but no new complaints Tobacco signs noted Awaiting inpatient psych placement lead slot technician at the bedside Hospitalist Physical - Constitutional Vitals: Temp Pulse Resp BP Pulse Ox 98.2 F 47 L 20 115/71 97 02/05/19 05:28 02/05/19 05:28 02/05/19 05:28 02/05/19 05:28 02/05/19 05:28 General appearance: Present: no acute distress, well-nourished - EENT Eyes: Present: PERRL, EOM intact - Neck Neck: Present: supple, normal ROM - Respiratory Respiratory effort: normal Respiratory: bilateral: diminished, negative: rales, rhonchi, wheezing - Cardiovascular Rhythm: regular Heart Sounds: Present: S1 & S2 - Extremities Extremities: no ischemia, No edema - Abdominal General gastrointestinal: soft, non-tender, non-distended, normal bowel sounds - Integumentary Integumentary: Present: clear, warm - Psychiatric Psychiatric: appropriate mood/affect, cooperative - Neurologic Neurologic: moves all extremities Results - Labs CBC & Chem 7: 02/01/19 23:10 02/02/19 04:36 Labs: Laboratory Last Values WBC 11.7 K/mm3 (4.5-11.0) H 02/01/19 23:10 RBC 4.64 M/mm3 (3.65-5.03) 02/01/19 23:10 Hgb 16.3 gm/dl (11.8-15.2) H 02/01/19 23:10 Hct 47.5 % (35.5-45.6) H 02/01/19 23:10 MCV 102 fl (84-94) H 02/01/19 23:10 MCH 35 pg (28-32) H 02/01/19 23:10 MCHC 34 % (32-34) 02/01/19 23:10 RDW 13.9 % (13.2-15.2) 02/01/19 23:10 Plt Count 336 K/mm3 (140-440) 02/01/19 23:10 Lymph % (Auto) 24.9 % (13.4-35.0) 02/01/19 23:10 [place] % (Auto) 7.1 % (0.0-7.3) 02/01/19 23:10 Eos % (Auto) 0.1 % (0.0-4.3) 02/01/19 23:10 Baso % (Auto) 0.9 % (0.0-1.8) 02/01/19 23:10 Lymph # 2.9 K/mm3 (1.2-5.4) 02/01/19 23:10 [place] # 0.8 K/mm3 (0.0-0.8) 02/01/19 23:10 Eos # 0.0 K/mm3 (0.0-0.4) 02/01/19 23:10 Baso # 0.1 K/mm3 (0.0-0.1) 02/01/19 23:10 Seg Neutrophils % 67.0 % (40.0-70.0) 02/01/19 23:10 Seg Neutrophils # 7.8 K/mm3 (1.8-7.7) H 02/01/19 23:10 PT 13.6 Sec. (12.2-14.9) 02/02/19 07:34 INR 1.07 (0.87-1.13) 02/02/19 07:34 APTT 28.6 Sec. (24.2-36.6) 02/02/19 07:34 VBG pH 7.429 (7.320-7.420) H 02/01/19 23:29 Sodium 140 mmol/L (137-145) 02/02/19 04:36 Potassium 3.8 mmol/L (3.6-5.0) 02/02/19 04:36 Chloride 102.3 mmol/L (98-107) 02/02/19 04:36 Carbon Dioxide 28 mmol/L (22-30) 02/02/19 04:36 14 mmol/L 02/02/19 04:36 BUN 12 mg/dL (9-20) 02/02/19 04:36 1.1 mg/dL (0.8-1.5) 02/02/19 04:36 Estimated GFR > 60 ml/min 02/02/19 04:36 11 % 02/02/19 04:36 Glucose 98 mg/dL (75-100) 02/02/19 04:36 Calcium 8.3 mg/dL (8.4-10.2) L 02/02/19 04:36 Magnesium 1.90 mg/dL (1.7-2.3) 02/02/19 04:36 0.40 mg/dL (0.1-1.2) 02/02/19 04:46 < 0.2 mg/dL (0-0.2) 02/02/19 04:46 0.2 mg/dL 02/02/19 04:46 AST 70 units/L (5-40) H 02/02/19 04:46 ALT 103 units/L (7-56) H 02/02/19 04:46 52 units/L (35-129) 02/02/19 04:46 6.3 g/dL (6.3-8.2) 02/02/19 04:46 3.7 g/dL (3.9-5) L 02/02/19 04:46 1.4 % 02/02/19 04:46 Yellow (Yellow) 02/02/19 02:55 Clear (Clear) 02/02/19 02:55 6.0 (5.0-7.0) 02/02/19 02:55 Ur Specific [place] 1.025 (1.003-1.030) 02/02/19 02:55 30 mg/dl mg/dL (Negative) 02/02/19 02:55 Neg mg/dL (Negative) 02/02/19 02:55 80 mg/dL (Negative) 02/02/19 02:55 Neg (Negative) 02/02/19 02:55 Neg (Negative) 02/02/19 02:55 Neg (Negative) 02/02/19 02:55 4.0 mg/dL (<2.0) 02/02/19 02:55 Ur Leukocyte Esterase Neg (Negative) 02/02/19 02:55 < 1.0 /HPF (0.0-6.0) 02/02/19 02:55 2.0 /HPF (0.0-6.0) 02/02/19 02:55 2+ /HPF 02/02/19 02:55 Salicylates < 0.3 mg/dL (2.8-20.0) L 02/01/19 23:10 Presumptive negative 02/02/19 02:55 Presumptive negative 02/02/19 02:55 Acetaminophen < 5.0 ug/mL (10.0-30.0) L 02/01/19 23:10 Ur Barbiturates Screen Presumptive negative 02/02/19 02:55 Ur Phencyclidine Scrn Presumptive negative 02/02/19 02:55 Ur Amphetamines Screen Presumptive negative 02/02/19 02:55 U Benzodiazepines Scrn Presumptive negative 02/02/19 02:55 Presumptive negative 02/02/19 02:55 U Marijuana (THC) Screen Presumptive positive 02/02/19 02:55 Disclamer 02/02/19 02:55 Plasma/Serum Alcohol < 0.01 % (0-0.07) 02/01/19 23:10 Active Medications - Current Medications Current Medications: Generic Name Dose Route Start Last Admin Trade Name Freq PRN Reason Stop Dose Admin Acetaminophen 650 mg 02/02/19 02:15 02/02/19 12:31 Tylenol PO 650 mg Q4H PRN Administration Pain MILD(1-3)/Fever >100.5/AGUIRRE Albuterol 2.5 mg 02/02/19 02:52 Proventil IH Q4HRT PRN Shortness Of Breath Dextrose 25 ml 02/02/19 02:23 D50w (25gm) Syringe IV PRN PRN Hypoglycemia Enoxaparin Sodium 40 mg 02/02/19 10:00 02/04/19 09:39 Lovenox SUB-Q Not Given QDAY IVETTE Folic Acid 1 mg 02/02/19 10:00 02/04/19 09:38 Folvite PO Not Given QDAY IVETTE Sodium Chloride 1,000 mls @ 75 mls/hr 02/02/19 03:00 02/02/19 18:09 Nacl 0.9% 1000 Ml IV 75 mls/hr DIRECT IVETTE Administration Lorazepam 1 mg 02/02/19 02:51 Ativan IV Q4H PRN Agitation Melatonin 5 mg 02/02/19 22:00 02/04/19 22:24 Melatonin PO Not Given QHS [facility] Multivitamins 1 each 02/02/19 10:00 02/04/19 09:39 Theragran Tab PO Not Given QDAY [facility] Ondansetron HCl 4 mg 02/02/19 02:15 02/02/19 22:32 Zofran IV 4 mg Q8H PRN Administration Nausea And Vomiting Pantoprazole Sodium 40 mg 02/02/19 10:00 02/04/19 09:39 Protonix PO Not Given QDAY [facility] Sertraline HCl 25 mg 02/02/19 16:00 02/04/19 09:39 Zoloft PO Not Given QDAY [facility] Sodium Chloride 10 ml 02/02/19 10:00 02/04/19 22:25 Sodium Chloride Flush Syringe 10 Ml IV Not Given BID IVETTE Sodium Chloride 10 ml 02/02/19 02:15 Sodium Chloride Flush Syringe 10 Ml IV PRN PRN LINE FLUSH Thiamine HCl 100 mg 02/02/19 10:00 02/04/19 09:39 Vitamin B-1 PO Not Given QDAY [facility] Nutrition/Malnutrition Assess - Dietary Evaluation Nutrition/Malnutrition Findings: Nutrition Notes Start: 02/03/19 10:20 Freq: Status: Active Protocol: Document 02/03/19 10:20 RM (Rec: 02/03/19 10:21 [id number]) Nutrition Notes Need for Assessment generated from: ent surgeon Initial or Follow up Brief Note Subjective/Other Information Screened for skin risk. [place] 22 points. Nutrition Intervention Revisit per MD consult or patient Sign Off request:
[2019-02-05] MEDS: PROTONIX PO SCH (10:12)
[2019-02-05] MEDS: FOLVITE PO SCH (10:12)
[2019-02-05] MEDS: LOVENOX SUB-Q SCH (10:12)
[2019-02-05] MEDS: SODIUM CHLORIDE FLUSH SYRINGE 10 ML IV SCH ×2 (10:13→22:40)
[2019-02-05] MEDS: ZOLOFT PO SCH (10:13)
[2019-02-05] MEDS: VITAMIN B-1 PO SCH (10:13)
[2019-02-05] MEDS: THERAGRAN Tab PO SCH (10:13)
--- NOTE | 2019-02-05 13:30 | Progress Note ---
Subjective - Reason for Consult Consult date: 02/05/19 Reason for consult: Psychiatry Follow-up - Chief Complaint Chief complaint: "I don't like taking medications" Patient is a 43-year-old male who presented to the emergency room for suicide attempt by drinking rubbing alcohol. Today the patient was calm and cooperative during the assessment. He was asked about his noncompliance with his medications, he stated that he do not like taking medication for "anything." Risks/Benefits of antidepressants was discussed with the patient, he verbalized understanding. He denies SI/HI's and AVH's. Mental Status Exam - Vital signs Last Vital Signs Temp 97.6 F 02/05/19 12:16 Pulse 58 L 02/05/19 12:16 Resp 18 02/05/19 12:16 BP 108/68 02/05/19 12:16 Pulse Ox 97 02/05/19 12:16 - Exam Narrative exam: MSE: Appearance: calm, cooperative Behavior: regular eye contact Speech: regular rate and tone Mood: 'okay" Affect: congruent to mood Thought Process: circumstantial Thought Content: denies SI/HI's and AVH's Motor Activity: sitting up in bed Cognition: A/O x3 Insight: variable to fair Judgment: variable Assessment and Plan Impression: MDD, Severe Type. Cannabis Use DO. Alcohol Intoxication. Today the patient was calm and cooperative dung the assessment. Liver Enzymes are elevated, but trending down. No acute withdrawals noted (etoh). DDx: Substance Induced Mood DO, Alcohol Use DO Recommendation/Plan: Continue 1013, Zoloft 25 mg PO daily for depression, and Melatonin 5 mg PO HS for sleep. At this time, the patient does not want to take any medication. Dispo: The patient was referred to inpatient psy services. Will staff with Dr Sudarshan Santamaria.
[2019-02-05] MEDS: MELATONIN PO SCH (22:41)
[2019-02-06] MEDS: PROTONIX PO SCH (10:00)
[2019-02-06] MEDS: VITAMIN B-1 PO SCH (10:00)
[2019-02-06] MEDS: ZOLOFT PO SCH (10:00)
[2019-02-06] MEDS: THERAGRAN Tab PO SCH (10:00)
[2019-02-06] MEDS: FOLVITE PO SCH (10:00)
[2019-02-06] MEDS: LOVENOX SUB-Q SCH (10:00)
--- NOTE | 2019-02-06 12:00 | Progress Note ---
Assessment and Plan Assessment and plan: --Suicidal attempt with rubbing alcohol consumption Patient feels better no new complaints Poison control recommended treating the pt symptomatically and observation for 24 hours Patient on 1013, like evaluation noted and appreciated Recommend inpatient psych transfer --Hypokalemia; resolved --Leukocytosis ;Probably reactive, --Transaminitis/probably alcoholic liver disease Transaminases trending down Closely monitor, GI evaluation if needed --COPD; stable No acute exacerbation On when necessary nebulizer breathing treatments --History of hypoglycemia On when necessary IV dextrose --History of polysubstance abuse (alcohol and tobacco) Patient will be placed on alcohol withdrawal prophylaxis Cessation recommended --DVT prophylaxis with Lovenox and GI prophylaxis with Protonix Patient is medically stable for discharge Awaiting inpatient psych placement History Interval history: Patient has no new complaints Wants to go home, On suicidal watch Pending transfer to inpatient psych facility Vital signs stable Hospitalist Physical - Constitutional Vitals: Temp Pulse Resp BP Pulse Ox 98.2 F 55 L 18 105/57 98 02/05/19 18:35 02/05/19 18:35 02/05/19 18:35 02/05/19 18:35 02/05/19 18:35 General appearance: Present: no acute distress, well-nourished - EENT Eyes: Present: PERRL, EOM intact - Neck Neck: Present: supple, normal ROM - Respiratory Respiratory effort: normal Respiratory: negative: rales, rhonchi, wheezing - Cardiovascular Rhythm: regular Heart Sounds: Present: S1 & S2 - Extremities Extremities: no ischemia, No edema - Abdominal General gastrointestinal: soft, non-tender, non-distended, normal bowel sounds - Integumentary Integumentary: Present: clear, warm - Psychiatric Psychiatric: appropriate mood/affect, cooperative - Neurologic Neurologic: CNII-XII intact, moves all extremities Results - Labs CBC & Chem 7: 02/01/19 23:10 02/02/19 04:36 Labs: Laboratory Last Values WBC 11.7 K/mm3 (4.5-11.0) H 02/01/19 23:10 RBC 4.64 M/mm3 (3.65-5.03) 02/01/19 23:10 Hgb 16.3 gm/dl (11.8-15.2) H 02/01/19 23:10 Hct 47.5 % (35.5-45.6) H 02/01/19 23:10 MCV 102 fl (84-94) H 02/01/19 23:10 MCH 35 pg (28-32) H 02/01/19 23:10 MCHC 34 % (32-34) 02/01/19 23:10 RDW 13.9 % (13.2-15.2) 02/01/19 23:10 Plt Count 336 K/mm3 (140-440) 02/01/19 23:10 Lymph % (Auto) 24.9 % (13.4-35.0) 02/01/19 23:10 [place] % (Auto) 7.1 % (0.0-7.3) 02/01/19 23:10 Eos % (Auto) 0.1 % (0.0-4.3) 02/01/19 23:10 Baso % (Auto) 0.9 % (0.0-1.8) 02/01/19 23:10 Lymph # 2.9 K/mm3 (1.2-5.4) 02/01/19 23:10 [place] # 0.8 K/mm3 (0.0-0.8) 02/01/19 23:10 Eos # 0.0 K/mm3 (0.0-0.4) 02/01/19 23:10 Baso # 0.1 K/mm3 (0.0-0.1) 02/01/19 23:10 Seg Neutrophils % 67.0 % (40.0-70.0) 02/01/19 23:10 Seg Neutrophils # 7.8 K/mm3 (1.8-7.7) H 02/01/19 23:10 PT 13.6 Sec. (12.2-14.9) 02/02/19 07:34 INR 1.07 (0.87-1.13) 02/02/19 07:34 APTT 28.6 Sec. (24.2-36.6) 02/02/19 07:34 VBG pH 7.429 (7.320-7.420) H 02/01/19 23:29 Sodium 140 mmol/L (137-145) 02/02/19 04:36 Potassium 3.8 mmol/L (3.6-5.0) 02/02/19 04:36 Chloride 102.3 mmol/L (98-107) 02/02/19 04:36 Carbon Dioxide 28 mmol/L (22-30) 02/02/19 04:36 14 mmol/L 02/02/19 04:36 BUN 12 mg/dL (9-20) 02/02/19 04:36 1.1 mg/dL (0.8-1.5) 02/02/19 04:36 Estimated GFR > 60 ml/min 02/02/19 04:36 11 % 02/02/19 04:36 Glucose 98 mg/dL (75-100) 02/02/19 04:36 Calcium 8.3 mg/dL (8.4-10.2) L 02/02/19 04:36 Magnesium 1.90 mg/dL (1.7-2.3) 02/02/19 04:36 0.40 mg/dL (0.1-1.2) 02/02/19 04:46 < 0.2 mg/dL (0-0.2) 02/02/19 04:46 0.2 mg/dL 02/02/19 04:46 AST 70 units/L (5-40) H 02/02/19 04:46 ALT 103 units/L (7-56) H 02/02/19 04:46 52 units/L (35-129) 02/02/19 04:46 6.3 g/dL (6.3-8.2) 02/02/19 04:46 3.7 g/dL (3.9-5) L 02/02/19 04:46 1.4 % 02/02/19 04:46 Yellow (Yellow) 02/02/19 02:55 Clear (Clear) 02/02/19 02:55 6.0 (5.0-7.0) 02/02/19 02:55 Ur Specific [place] 1.025 (1.003-1.030) 02/02/19 02:55 30 mg/dl mg/dL (Negative) 02/02/19 02:55 Neg mg/dL (Negative) 02/02/19 02:55 80 mg/dL (Negative) 02/02/19 02:55 Neg (Negative) 02/02/19 02:55 Neg (Negative) 02/02/19 02:55 Neg (Negative) 02/02/19 02:55 4.0 mg/dL (<2.0) 02/02/19 02:55 Ur Leukocyte Esterase Neg (Negative) 02/02/19 02:55 < 1.0 /HPF (0.0-6.0) 02/02/19 02:55 2.0 /HPF (0.0-6.0) 02/02/19 02:55 2+ /HPF 02/02/19 02:55 Salicylates < 0.3 mg/dL (2.8-20.0) L 02/01/19 23:10 Presumptive negative 02/02/19 02:55 Presumptive negative 02/02/19 02:55 Acetaminophen < 5.0 ug/mL (10.0-30.0) L 02/01/19 23:10 Ur Barbiturates Screen Presumptive negative 02/02/19 02:55 Ur Phencyclidine Scrn Presumptive negative 02/02/19 02:55 Ur Amphetamines Screen Presumptive negative 02/02/19 02:55 U Benzodiazepines Scrn Presumptive negative 02/02/19 02:55 Presumptive negative 02/02/19 02:55 U Marijuana (THC) Screen Presumptive positive 02/02/19 02:55 Disclamer 02/02/19 02:55 Plasma/Serum Alcohol < 0.01 % (0-0.07) 02/01/19 23:10 Active Medications - Current Medications Current Medications: Generic Name Dose Route Start Last Admin Trade Name Freq PRN Reason Stop Dose Admin Acetaminophen 650 mg 02/02/19 02:15 02/02/19 12:31 Tylenol PO 650 mg Q4H PRN Administration Pain MILD(1-3)/Fever >100.5/AGUIRRE Albuterol 2.5 mg 02/02/19 02:52 Proventil IH Q4HRT PRN Shortness Of Breath Dextrose 25 ml 02/02/19 02:23 D50w (25gm) Syringe IV PRN PRN Hypoglycemia Enoxaparin Sodium 40 mg 02/02/19 10:00 02/05/19 10:12 Lovenox SUB-Q Not Given QDAY IVETTE Folic Acid 1 mg 02/02/19 10:00 02/05/19 10:12 Folvite PO Not Given QDAY IVETTE Sodium Chloride 1,000 mls @ 75 mls/hr 02/02/19 03:00 02/02/19 18:09 Nacl 0.9% 1000 Ml IV 75 mls/hr DIRECT IVETTE Administration Lorazepam 1 mg 02/02/19 02:51 Ativan IV Q4H PRN Agitation Melatonin 5 mg 02/02/19 22:00 02/05/19 22:41 Melatonin PO Not Given QHS [facility] Multivitamins 1 each 02/02/19 10:00 02/05/19 10:13 Theragran Tab PO Not Given QDAY [facility] Ondansetron HCl 4 mg 02/02/19 02:15 02/02/19 22:32 Zofran IV 4 mg Q8H PRN Administration Nausea And Vomiting Pantoprazole Sodium 40 mg 02/02/19 10:00 02/05/19 10:12 Protonix PO Not Given QDAY [facility] Sertraline HCl 25 mg 02/02/19 16:00 02/05/19 10:13 Zoloft PO Not Given QDAY IVETTE Sodium Chloride 10 ml 02/02/19 10:00 02/05/19 22:40 Sodium Chloride Flush Syringe 10 Ml IV 10 ml BID IVETTE Administration Sodium Chloride 10 ml 02/02/19 02:15 Sodium Chloride Flush Syringe 10 Ml IV PRN PRN LINE FLUSH Thiamine HCl 100 mg 02/02/19 10:00 02/05/19 10:13 Vitamin B-1 PO Not Given QDAY [facility] Nutrition/Malnutrition Assess - Dietary Evaluation Nutrition/Malnutrition Findings: Nutrition Notes Start: 02/03/19 10:20 Freq: Status: Active Protocol: Document 02/03/19 10:20 RM (Rec: 02/03/19 10:21 [id number]) Nutrition Notes Need for Assessment generated from: improvement rn Initial or Follow up Brief Note Subjective/Other Information Screened for skin risk. [place] 22 points. Nutrition Intervention Revisit per MD consult or patient Sign Off request:
--- NOTE | 2019-02-06 12:12 | Progress Note ---
Subjective - Reason for Consult Consult date: 02/06/19 Reason for consult: Psychiatry Follow-up - Chief Complaint Chief complaint: "I was stupid"" Patient is a 43-year-old male who presented to the emergency room for suicide attempt by drinking rubbing alcohol. Today the patient was calm and cooperative during the assessment. He is adamant that his actions prior to his admission to hospital was "stupid." He stated he will have a support sysytem in place with family that reside in the area. He denies SI/HI's and AVH's. Mental Status Exam - Vital signs Last Vital Signs Temp 98.2 F 02/05/19 18:35 Pulse 55 L 02/05/19 18:35 Resp 18 02/05/19 18:35 BP 105/57 02/05/19 18:35 Pulse Ox 98 02/05/19 18:35 - Exam Narrative exam: MSE: Appearance: calm, cooperative Behavior: regular eye contact Speech: regular rate and tone Mood: 'okay" Affect: congruent to mood Thought Process: circumstantial Thought Content: denies SI/HI's and AVH's Motor Activity: sitting up in bed Cognition: A/O x3 Insight: variable to fair Judgment: variable Assessment and Plan Impression: MDD, Severe Type. Cannabis Use DO. Alcohol Intoxication. Today the patient was calm and cooperative dung the assessment. No acute withdrawals noted (etoh). DDx: Substance Induced Mood DO, Alcohol Use DO Recommendation/Plan: Reevaluate the patient's 1013 in 24 hours. prior to rescinding the patient's 1013, a safety contract and suicide risk assessment will be completed. Continue Zoloft 25 mg PO daily for depression, and Melatonin 5 mg PO HS for sleep. At this time, the patient does not want to take any medication. Dispo: If the patient's 1013 is rescinded in 24 hours, he can follow up with [facility] for outpatient psy services. Will staff with Dr Sudarshan Santamaria.
[2019-02-06] MEDS: SODIUM CHLORIDE FLUSH SYRINGE 10 ML IV SCH ×2 (17:45→22:16)
[2019-02-06 18:21] VITALS: BP 111/72
[2019-02-06] MEDS: MELATONIN PO SCH (22:35)
--- NOTE | 2019-02-07 08:37 | Progress Note ---
Assessment and Plan Assessment and plan: --Suicidal attempt with rubbing alcohol consumption Patient feels better no new complaints on 1012, psych recommend inpatient psych transfer --Hypokalemia; resolved --Leukocytosis ;Probably reactive, --Transaminitis/probably alcoholic liver disease Transaminases trending down Closely monitor, GI evaluation if needed --COPD; stable No acute exacerbation On when necessary nebulizer breathing treatments --History of hypoglycemia On when necessary IV dextrose --History of polysubstance abuse (alcohol and tobacco) Patient will be placed on alcohol withdrawal prophylaxis Cessation recommended --DVT prophylaxis with Lovenox and GI prophylaxis with Protonix Patient is medically stable for discharge Disposition; per psych ,inpt psych placement History Interval history: Patient seen and examined medical records. The patient feels better wants to go home Denies suicidal thoughts or ideation or depression Patient on 1012 status per psych Awaiting inpatient psych placement Vital signs noted Hospitalist Physical - Constitutional Vitals: Temp Pulse Resp BP Pulse Ox 97.8 F 57 L 20 111/72 97 02/06/19 18:05 02/06/19 18:05 02/06/19 18:05 02/06/19 18:05 02/06/19 18:05 General appearance: Present: no acute distress, well-nourished - EENT Eyes: Present: PERRL, EOM intact - Neck Neck: Present: supple, normal ROM - Respiratory Respiratory effort: normal Respiratory: bilateral: diminished, negative: rales, rhonchi, wheezing - Cardiovascular Rhythm: regular Heart Sounds: Present: S1 & S2 - Extremities Extremities: no ischemia, No edema - Abdominal General gastrointestinal: soft, non-tender, non-distended, normal bowel sounds - Integumentary Integumentary: Present: clear, warm - Psychiatric Psychiatric: appropriate mood/affect, cooperative - Neurologic Neurologic: CNII-XII intact, moves all extremities Results - Labs CBC & Chem 7: 02/01/19 23:10 02/02/19 04:36 Labs: Laboratory Last Values WBC 11.7 K/mm3 (4.5-11.0) H 02/01/19 23:10 RBC 4.64 M/mm3 (3.65-5.03) 02/01/19 23:10 Hgb 16.3 gm/dl (11.8-15.2) H 02/01/19 23:10 Hct 47.5 % (35.5-45.6) H 02/01/19 23:10 MCV 102 fl (84-94) H 02/01/19 23:10 MCH 35 pg (28-32) H 02/01/19 23:10 MCHC 34 % (32-34) 02/01/19 23:10 RDW 13.9 % (13.2-15.2) 02/01/19 23:10 Plt Count 336 K/mm3 (140-440) 02/01/19 23:10 Lymph % (Auto) 24.9 % (13.4-35.0) 02/01/19 23:10 [place] % (Auto) 7.1 % (0.0-7.3) 02/01/19 23:10 Eos % (Auto) 0.1 % (0.0-4.3) 02/01/19 23:10 Baso % (Auto) 0.9 % (0.0-1.8) 02/01/19 23:10 Lymph # 2.9 K/mm3 (1.2-5.4) 02/01/19 23:10 [place] # 0.8 K/mm3 (0.0-0.8) 02/01/19 23:10 Eos # 0.0 K/mm3 (0.0-0.4) 02/01/19 23:10 Baso # 0.1 K/mm3 (0.0-0.1) 02/01/19 23:10 Seg Neutrophils % 67.0 % (40.0-70.0) 02/01/19 23:10 Seg Neutrophils # 7.8 K/mm3 (1.8-7.7) H 02/01/19 23:10 PT 13.6 Sec. (12.2-14.9) 02/02/19 07:34 INR 1.07 (0.87-1.13) 02/02/19 07:34 APTT 28.6 Sec. (24.2-36.6) 02/02/19 07:34 VBG pH 7.429 (7.320-7.420) H 02/01/19 23:29 Sodium 140 mmol/L (137-145) 02/02/19 04:36 Potassium 3.8 mmol/L (3.6-5.0) 02/02/19 04:36 Chloride 102.3 mmol/L (98-107) 02/02/19 04:36 Carbon Dioxide 28 mmol/L (22-30) 02/02/19 04:36 14 mmol/L 02/02/19 04:36 BUN 12 mg/dL (9-20) 02/02/19 04:36 1.1 mg/dL (0.8-1.5) 02/02/19 04:36 Estimated GFR > 60 ml/min 02/02/19 04:36 11 % 02/02/19 04:36 Glucose 98 mg/dL (75-100) 02/02/19 04:36 Calcium 8.3 mg/dL (8.4-10.2) L 02/02/19 04:36 Magnesium 1.90 mg/dL (1.7-2.3) 02/02/19 04:36 0.40 mg/dL (0.1-1.2) 02/02/19 04:46 < 0.2 mg/dL (0-0.2) 02/02/19 04:46 0.2 mg/dL 02/02/19 04:46 AST 70 units/L (5-40) H 02/02/19 04:46 ALT 103 units/L (7-56) H 02/02/19 04:46 52 units/L (35-129) 02/02/19 04:46 6.3 g/dL (6.3-8.2) 02/02/19 04:46 3.7 g/dL (3.9-5) L 02/02/19 04:46 1.4 % 02/02/19 04:46 Yellow (Yellow) 02/02/19 02:55 Clear (Clear) 02/02/19 02:55 6.0 (5.0-7.0) 02/02/19 02:55 Ur Specific [place] 1.025 (1.003-1.030) 02/02/19 02:55 30 mg/dl mg/dL (Negative) 02/02/19 02:55 Neg mg/dL (Negative) 02/02/19 02:55 80 mg/dL (Negative) 02/02/19 02:55 Neg (Negative) 02/02/19 02:55 Neg (Negative) 02/02/19 02:55 Neg (Negative) 02/02/19 02:55 4.0 mg/dL (<2.0) 02/02/19 02:55 Ur Leukocyte Esterase Neg (Negative) 02/02/19 02:55 < 1.0 /HPF (0.0-6.0) 02/02/19 02:55 2.0 /HPF (0.0-6.0) 02/02/19 02:55 2+ /HPF 02/02/19 02:55 Salicylates < 0.3 mg/dL (2.8-20.0) L 02/01/19 23:10 Presumptive negative 02/02/19 02:55 Presumptive negative 02/02/19 02:55 Acetaminophen < 5.0 ug/mL (10.0-30.0) L 02/01/19 23:10 Ur Barbiturates Screen Presumptive negative 02/02/19 02:55 Ur Phencyclidine Scrn Presumptive negative 02/02/19 02:55 Ur Amphetamines Screen Presumptive negative 02/02/19 02:55 U Benzodiazepines Scrn Presumptive negative 02/02/19 02:55 Presumptive negative 02/02/19 02:55 U Marijuana (THC) Screen Presumptive positive 02/02/19 02:55 Disclamer 02/02/19 02:55 Plasma/Serum Alcohol < 0.01 % (0-0.07) 02/01/19 23:10 Active Medications - Current Medications Current Medications: Generic Name Dose Route Start Last Admin Trade Name Freq PRN Reason Stop Dose Admin Acetaminophen 650 mg 02/02/19 02:15 02/02/19 12:31 Tylenol PO 650 mg Q4H PRN Administration Pain MILD(1-3)/Fever >100.5/AGUIRRE Albuterol 2.5 mg 02/02/19 02:52 Proventil IH Q4HRT PRN Shortness Of Breath Dextrose 25 ml 02/02/19 02:23 D50w (25gm) Syringe IV PRN PRN Hypoglycemia Enoxaparin Sodium 40 mg 02/02/19 10:00 02/06/19 10:00 Lovenox SUB-Q Not Given QDAY IVETTE Folic Acid 1 mg 02/02/19 10:00 02/06/19 10:00 Folvite PO Not Given QDAY IVETTE Sodium Chloride 1,000 mls @ 75 mls/hr 02/02/19 03:00 02/02/19 18:09 Nacl 0.9% 1000 Ml IV 75 mls/hr DIRECT IVETTE Administration Lorazepam 1 mg 02/02/19 02:51 Ativan IV Q4H PRN Agitation Melatonin 5 mg 02/02/19 22:00 02/06/19 22:35 Melatonin PO Not Given QHS [facility] Multivitamins 1 each 02/02/19 10:00 02/06/19 10:00 Theragran Tab PO Not Given QDAY [facility] Ondansetron HCl 4 mg 02/02/19 02:15 02/02/19 22:32 Zofran IV 4 mg Q8H PRN Administration Nausea And Vomiting Pantoprazole Sodium 40 mg 02/02/19 10:00 02/06/19 10:00 Protonix PO Not Given QDAY [facility] Sertraline HCl 25 mg 02/02/19 16:00 02/06/19 10:00 Zoloft PO Not Given QDAY [facility] Sodium Chloride 10 ml 02/02/19 10:00 02/06/19 22:16 Sodium Chloride Flush Syringe 10 Ml IV Not Given BID IVETTE Sodium Chloride 10 ml 02/02/19 02:15 Sodium Chloride Flush Syringe 10 Ml IV PRN PRN LINE FLUSH Thiamine HCl 100 mg 02/02/19 10:00 02/06/19 10:00 Vitamin B-1 PO Not Given QDAY [facility] Nutrition/Malnutrition Assess - Dietary Evaluation Nutrition/Malnutrition Findings: Nutrition Notes Start: 02/03/19 10:20 Freq: Status: Active Protocol: Document 02/03/19 10:20 RM (Rec: 02/03/19 10:21 RM [id number]) Nutrition Notes Need for Assessment generated from: [employer] Initial or Follow up Brief Note Subjective/Other Information Screened for skin risk. [place] 22 points. Nutrition Intervention Revisit per MD consult or patient Sign Off request:
[2019-02-07] MEDS: PROTONIX PO SCH (11:56)
[2019-02-07] MEDS: LOVENOX SUB-Q SCH (11:56)
[2019-02-07] MEDS: THERAGRAN Tab PO SCH (11:56)
[2019-02-07] MEDS: FOLVITE PO SCH (11:56)
[2019-02-07] MEDS: VITAMIN B-1 PO SCH (11:56)
[2019-02-07] MEDS: SODIUM CHLORIDE FLUSH SYRINGE 10 ML IV SCH (11:56)
[2019-02-07] MEDS: ZOLOFT PO SCH (11:57)
--- NOTE | 2019-02-07 18:42 | Progress Note ---
Subjective - Reason for Consult Consult date: 02/07/19 Reason for consult: follow up - Chief Complaint Chief complaint: "I got drunk and said something stupid." Patient is a 43-year-old male who presented to the emergency room for suicide attempt by drinking rubbing alcohol. Today the patient was calm and cooperative during the assessment. He is adamant that his actions prior to his admission to hospital was "stupid." He denies SI/HI's and AVH's. He will be staying with his 1st cousin, Yadiel Roblero. 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 He denies a history of suicide attempt. He says he was 1013'd previously because he was "strung out" several years ago. He says he has been clean from drugs but does not consider thc a drug. He declines further treatment for addiction or mental health. Mental Status Exam - Vital signs Last Vital Signs Temp 97.8 F 02/06/19 18:05 Pulse 57 L 02/06/19 18:05 Resp 20 02/06/19 18:05 BP 111/72 02/06/19 18:05 Pulse Ox 97 02/06/19 18:05 - Exam Narrative exam: MSE: Appearance: calm, cooperative Behavior: regular eye contact Speech: regular rate and tone Mood: 'okay" Affect: congruent to mood Thought Process: linear Thought Content: denies SI/HI's and AVH's Motor Activity: sitting up in bed Cognition: A/O x3 Insight: fair Judgment: variable Assessment and Plan Impression: MDD, Severe Type. Cannabis Use DO. Alcohol Intoxication. Today the patient was calm and cooperative dung the assessment. No acute withdrawals noted (etoh). No acute safety concerns identified. He has consistently denied suicidal/homicidal ideation. No evidence of psychosis identified. He has the support of family and this was confirmed by BISQUE KILN DRAWER speaking with his cousin. Cousin will pick him up. DDx: Substance Induced Mood DO, Alcohol Use DO Recommendation/Plan: 1013 At this time, the patient does not want to take any medication. He is recommended to abstain from all mood altering and illicit substances. Dispo: He can follow up with [facility] for outpatient psy services. Will staff with Dr Sudarshan Santamaria.
== END 2019-02-07 20:35 | disposition home or self-care (01) | DRG 918 ==
LOC: EEVIPCON 23:01 → ED 23:01 → 3A 02-02 02:15
PROVIDERS: ADMIT Internal Medicine; ATTEND Internal Medicine
DX: T51.2X2A Toxic effect of 2-Propanol, intentional self-harm, initial encounter (principal); F32.2 Major depressive disorder, single episode, severe without psychotic features; F10.129 Alcohol abuse with intoxication, unspecified; Y92.098 Other place in other non-institutional residence as the place of occurrence of the external cause; F12.988 Cannabis use, unspecified with other cannabis-induced disorder; D72.828 Other elevated white blood cell count; E87.6 Hypokalemia; J44.9 Chronic obstructive pulmonary disease, unspecified; F17.210 Nicotine dependence, cigarettes, uncomplicated; Y90.9 Presence of alcohol in blood, level not specified; Z71.6 Tobacco abuse counseling; Z71.41 Alcohol abuse counseling and surveillance of alcoholic
CPT/HCPCS: 36415; 80048; 80053; 80076; 80307; 80320; 81001; 82805; 83735; 85025; 85610; 85730; 93005; 93010; 94640; 99406; G0378; G0480; J1650; J2405; J7030

== ENCOUNTER 2022-03-13 18:35 | Emergency (ER) | payer SELFPAY ==
[2022-03-13 18:45] VITALS: BP 122/72
[2022-03-13] MEDS ORDERED: ALBUTEROL 2.5 MG/3 ML NEBU IH ONE (19:08)
--- NOTE | 2022-03-13 19:35 | XRay Report ---
CHEST 2 VIEWS INDICATION / CLINICAL INFORMATION: Dyspnea. COMPARISON: None available. FINDINGS: SUPPORT DEVICES: None. HEART / MEDIASTINUM: No significant abnormality. LUNGS / PLEURA: No significant pulmonary abnormality. No significant pleural effusion. No pneumothora x. ADDITIONAL FINDINGS: No significant additional findings. IMPRESSION: 1. No acute abnormality of the chest. Signer Name: Diaz Bragg MD Signed: 03/13/2022 7:31 PM Workstation Name: [id number]
[2022-03-13 19:46] LABS: Basophils # (Auto) 0.1 K/mm3 (0.0-0.1); Basophils % (Auto) 0.7 % (0.0-1.8); Eosinophils % (Auto) 0.3 % (0.0-4.3); Hematocrit 45.4 % (35.5-45.6); Hemoglobin 15.5 gm/dl (11.8-15.2); Lymphocytes # (Auto) 2.4 K/mm3 (1.2-5.4); Lymphocytes % (Auto) 26.7 % (13.4-35.0); Mean Corpuscular HGB Conc 34 % (32-34); Mean Corpuscular Volume 95 fl (84-94); Monocytes # (Auto) 0.9 K/mm3 (0.0-0.8); Monocytes % (Auto) 9.7 % (0.0-7.3); Platelet Count 262 K/mm3 (140-440); Red Blood Count 4.77 M/mm3 (3.65-5.03); Red Cell Distribution Width 14.7 % (13.2-15.2)
[2022-03-13 20:27] LABS: Alanine Aminotransferase 191 units/L (7-56); Albumin 4.6 g/dL (3.9-5); BUN/Creatinine Ratio 16; Blood Urea Nitrogen 14 mg/dL (9-20); Hemolysis Index 11
== END 2022-03-13 20:35 | disposition left against medical advice (07) ==
LOC: ED 18:35
DX: R06.02 Shortness of breath (principal); Z53.21 Procedure and treatment not carried out due to patient leaving prior to being seen by health care provider
CPT/HCPCS: 36415; 71046; 80053; 84484; 85025; 94644